=== PATIENT | male | born 1950 | race African-American/Black ===

== ENCOUNTER 2021-05-21 04:32 | Day surgery (SDC) | payer BC, OTHER ==
[2021-05-18 10:40] VITALS: BMI 20.9
[2021-05-21] MEDS ORDERED: MIDAZOLAM HCL 2 MG/2 ML SINGLE DOSE VIAL ONE (08:35)
[2021-05-21] MEDS ORDERED: PROPOFOL 20 ML ONE (08:43)
[2021-05-21] MEDS ORDERED: ACETAMINOPHEN 500 MG TABLET (FP) PO PRN (09:43)
[2021-05-21] MEDS ORDERED: oxyCODONE HCL 5 MG TABLET PO PRN (09:43)
[2021-05-21] MEDS ORDERED: ONDANSETRON 4 MG/2 ML VIAL IVPUSH PRN (09:43)
[2021-05-21] MEDS ORDERED: LACTATED RINGERS SOLUTION 1,000 ML IV SCH (09:45)
[2021-05-21 09:50] VITALS: PULSE 57
[2021-05-21 10:42] VITALS: BP 142/78; TEMP 98.3
== END 2021-05-21 11:00 | disposition home or self-care (01) ==
LOC: JASU-SURG 04:32
PROVIDERS: ATTEND Urology
PROC: 0TF3XZZ Fragmentation in Right Kidney Pelvis, External Approach (ICD-10-PCS; principal; 2021-05-21 09:00)
DX: N20.0 Calculus of kidney (principal); I10 Essential (primary) hypertension